=== PATIENT | male | born 2000 | race Caucasian/White ===

== ENCOUNTER 2021-04-27 17:56 | Emergency (ER) | payer MEDICAID ==
[~2021-04-27] VITALS: Ht 175.3 cm; Wt 217.7 kg
[2021-04-27 17:58] VITALS: BP 162/82
[2021-04-27] MEDS ORDERED: CEPH-588 PO (19:06)
--- NOTE | 2021-04-27 19:13 | NUR ---
NO NURSING INTERVENTIONS GIVEN. NO NEED FOR COMPLETE ASSESSMENT
== END 2021-04-27 19:13 | disposition home or self-care (01) ==
LOC: MED 17:56
DX: L03.116 Cellulitis of left lower limb (principal); I88.9 Nonspecific lymphadenitis, unspecified; Z79.899 Other long term (current) drug therapy; Z98.890 Other specified postprocedural states
CPT/HCPCS: 99283